=== PATIENT | female | born 1955 | race Caucasian/White ===

== ENCOUNTER → 2016-07-15 | Outpatient (REF) | payer MEDICAID | LOC: M LAB REF 16:55 | PROVIDERS: ATTEND Nurse Practitioner Adult Health | DX: N39.0 Urinary tract infection, site not specified (principal) ==

== ENCOUNTER → 2016-08-03 | Outpatient (REF) | payer MEDICAID | LOC: M LAB REF 12:23 | PROVIDERS: ATTEND Nurse Practitioner Adult Health | DX: R42 Dizziness and giddiness (principal); R41.3 Other amnesia ==

== ENCOUNTER → 2016-08-11 | Outpatient (REF) | payer MEDICAID | LOC: M LAB REF 16:58 | PROVIDERS: ATTEND Nurse Practitioner Adult Health | DX: N76.0 Acute vaginitis (principal) ==

== ENCOUNTER → 2016-10-05 | Outpatient (REF) | payer MEDICAID ==
[2016-10-05 16:10] LABS: THYROXINE (T4) 8.5 UG/DL (4.5-12.0)
== END ==
LOC: M LAB REF 14:48
PROVIDERS: ATTEND Nurse Practitioner Adult Health
DX: E03.9 Hypothyroidism, unspecified (principal)

== ENCOUNTER → 2016-12-21 | Outpatient (REF) | payer OTHER ==
[2016-12-21 19:29] LABS: BASO % 0.6 % (0.0-1.0); EOS # 0.2 K/mm3 (0.0-0.50); EOS % 2.3 % (0.0-3.0); LARGE UNSTAINED CELL # 0.1 K/mm3 (0.0-0.4); LARGE UNSTAINED CELL % 1.8 % (0.0-4.0); LYMPH # 2.4 K/mm3 (1.5-4.5); LYMPH % 33.2 % (24.0-44.0); MEAN CORPUSCULAR HGB CONC 31.9 g/dl (32.0-36.5); MEAN CORPUSCULAR VOLUME 100.4 fl (80.0-96.0); MONO # 0.4 K/mm3 (0.0-0.8); MONO % 5.6 % (0.0-5.0); NEUTROPHILS # 3.9 K/mm3 (1.8-7.7); NEUTROPHILS % 56.5 % (36.0-66.0); PLATELET COUNT, AUTOMATED 279 k/mm3 (150-450); RED CELL DISTRIBUTION WIDTH 12.6 % (11.5-14.5); WHITE BLOOD COUNT 6.9 K/mm3 (4.0-10.0)
[2016-12-21 19:32] LABS: ALBUMIN 3.5 GM/DL (3.2-5.2); ALBUMIN/GLOBULIN RATIO 1.06 (1.00-1.93); ALKALINE PHOSPHATASE 96 U/L (45-117); ALT/SGPT 32 U/L (12-78); ANION GAP 6 MEQ/L (8-16); AST/SGOT 23 U/L (15-37); BILIRUBIN,TOTAL 0.3 MG/DL (0.2-1.0); BLOOD UREA NITROGEN 10 MG/DL (7-18); CALCIUM LEVEL 8.5 MG/DL (8.8-10.2); CARBON DIOXIDE LEVEL 28 MEQ/L (21-32); CHLORIDE LEVEL 109 MEQ/L (98-107); CREATININE FOR GFR 0.96 MG/DL (0.55-1.02); GLOMERULAR FILTRATION RATE > 60.0 (>45); GLUCOSE, FASTING 120 MG/DL (80-110); MAGNESIUM LEVEL 2.1 MG/DL (1.8-2.4); POTASSIUM SERUM 4.4 MEQ/L (3.5-5.1); SODIUM LEVEL 143 MEQ/L (136-145); TOTAL PROTEIN 6.8 GM/DL (6.4-8.2)
[2016-12-21 20:52] LABS: ERYTHROCYTE SEDIMENTATION RATE 12 mm/hr (0-30)
== END ==
LOC: M LAB REF 17:37
PROVIDERS: ATTEND Nurse Practitioner Adult Health
DX: M79.7 Fibromyalgia (principal); E03.9 Hypothyroidism, unspecified; F32.1 Major depressive disorder, single episode, moderate

== ENCOUNTER → 2016-12-24 | Outpatient (REF) | payer OTHER ==
[2016-12-24 18:55] LABS: ANION GAP 4 MEQ/L (8-16); BLOOD UREA NITROGEN 14 MG/DL (7-18); CARBON DIOXIDE LEVEL 27 MEQ/L (21-32); CHLORIDE LEVEL 109 MEQ/L (98-107); CREATININE FOR GFR 0.95 MG/DL (0.55-1.02); GLOMERULAR FILTRATION RATE > 60.0 (>45); GLUCOSE, FASTING 191 MG/DL (80-110); POTASSIUM SERUM 4.2 MEQ/L (3.5-5.1); SODIUM LEVEL 140 MEQ/L (136-145)
== END ==
LOC: M LAB REF 17:00
PROVIDERS: ATTEND Nurse Practitioner Adult Health
DX: I10 Essential (primary) hypertension (principal)

== ENCOUNTER → 2017-04-27 | Outpatient (REF) | payer OTHER ==
[2017-04-27 18:08] LABS: CALCIUM OXALATE CRYSTALS LARGE
== END ==
LOC: M LAB REF 16:41
PROVIDERS: ATTEND Nurse Practitioner Family
DX: N39.0 Urinary tract infection, site not specified (principal)

== ENCOUNTER → 2017-11-24 | Outpatient (CLI) | payer OTHER | LOC: M WHC 11:07 | DX: Z12.31 Encounter for screening mammogram for malignant neoplasm of breast (principal); Z78.0 Asymptomatic menopausal state; Z92.0 Personal history of contraception | CPT/HCPCS: 77067 ==

== ENCOUNTER 2018-02-18 17:22 | Inpatient (IN) | payer MEDICAID, OTHER ==
[2018-02-18 18:15] LABS: HEMATOCRIT 41.4 % (36.0-47.0); HEMOGLOBIN 13.4 g/dl (12.0-15.5); MEAN CORPUSCULAR HEMOGLOBIN 29.8 pg (27.0-33.0); MEAN CORPUSCULAR HGB CONC 32.4 g/dl (32.0-36.5); PLATELET COUNT, AUTOMATED 345 10^3/uL (150-450); RED CELL DISTRIBUTION WIDTH 12.5 % (11.5-14.5); WHITE BLOOD COUNT 11.4 10^3/uL (4.0-10.0)
[2018-02-18 18:35] LABS: AMPHETAMINES LEVEL URINE NEGATIVE (NEGATIVE); BARBITURATES URINE NEGATIVE (NEGATIVE); BENZODIAZEPINES URINE POSITIVE (NEGATIVE); CANNABINOIDS URINE NEGATIVE (NEGATIVE); COCAINE METABOLITE URINE NEGATIVE (NEGATIVE); METHADONE URINE NEGATIVE (NEGATIVE); OPIATES URINE NEGATIVE (NEGATIVE); PHENCYCLIDINE URINE NEGATIVE (NEGATIVE)
[2018-02-18 18:46] LABS: ALBUMIN 3.6 GM/DL (3.2-5.2); ALKALINE PHOSPHATASE 138 U/L (45-117); ALT/SGPT 29 U/L (12-78); ANION GAP 7 MEQ/L (8-16); AST/SGOT 20 U/L (7-37); BILIRUBIN,DIRECT < 0.1 MG/DL (0.0-0.2); BILIRUBIN,TOTAL 0.3 MG/DL (0.2-1.0); BLOOD UREA NITROGEN 15 MG/DL (7-18); CALCIUM LEVEL 8.8 MG/DL (8.8-10.2); CARBON DIOXIDE LEVEL 26 MEQ/L (21-32); CHLORIDE LEVEL 107 MEQ/L (98-107); CREATININE FOR GFR 0.88 MG/DL (0.55-1.30); GLOMERULAR FILTRATION RATE > 60.0 (>45); GLUCOSE, FASTING 94 MG/DL (70-100); SALICYLATE LEVEL < 1.7 MG/DL (5.0-30.0); SODIUM LEVEL 140 MEQ/L (136-145); TOTAL PROTEIN 8.1 GM/DL (6.4-8.2)
[2018-02-18 18:47] LABS: ACETAMINOPHEN LEVEL < 2.0 UG/ML (10.0-30.0); ETHYL ALCOHOL (ETHANOL) < 0.003 % (0.000-0.010)
[2018-02-18] MEDS ORDERED: MAALOX 30 ML SUSP *UDC PO (20:15)
[2018-02-18] MEDS ORDERED: zolPIDEM TARTRATE 5 MG TAB PO (20:45)
[2018-02-18] MEDS: MAGNESIUM OXIDE 400 MG TAB (MAG-OX) PO (21:00)
[2018-02-18] MEDS: TOPIRAMATE (TopAMAX) 100 MG TAB PO (21:00)
[2018-02-18] MEDS: LEVOTHYROXINE 25MCG TABLET (0.025MG) PO (22:23)
[2018-02-18] MEDS: ACETAMINOPHEN TAB 650MG DOSE (2X325MG) PO (22:23)
[2018-02-18] MEDS: LORazepam 1 MG TAB PO (22:24)
[2018-02-19] MEDS: DULoxetine 30 MG CAP (CYMBALTA) PO (09:04)
[2018-02-19] MEDS: ENALAPRIL MALEATE 5 MG TAB PO (09:04)
[2018-02-19] MEDS: TOPIRAMATE (TopAMAX) 100 MG TAB PO ×2 (09:04→20:08)
[2018-02-19] MEDS: FUROSEMIDE 20 MG TAB PO (09:04)
[2018-02-19] MEDS: LORazepam 1 MG TAB PO ×2 (11:13→20:08)
[2018-02-19] MEDS: ACETAMINOPHEN TAB 650MG DOSE (2X325MG) PO (20:07)
[2018-02-19] MEDS: MAGNESIUM OXIDE 400 MG TAB (MAG-OX) PO (20:08)
[2018-02-19] MEDS: LEVOTHYROXINE 25MCG TABLET (0.025MG) PO (20:08)
[2018-02-20] MEDS: FUROSEMIDE 20 MG TAB PO (08:49)
[2018-02-20] MEDS: TOPIRAMATE (TopAMAX) 100 MG TAB PO ×2 (08:50→20:30)
[2018-02-20] MEDS: DULoxetine 30 MG CAP (CYMBALTA) PO (08:50)
[2018-02-20] MEDS: ENALAPRIL MALEATE 5 MG TAB PO (08:50)
[2018-02-20] MEDS: ACETAMINOPHEN TAB 650MG DOSE (2X325MG) PO (08:51)
[2018-02-20] MEDS: LORazepam 1 MG TAB PO ×2 (13:12→20:29)
[2018-02-20 17:23] LABS: BEDSIDE GLUCOSE 132 MG/DL (80-115)
[2018-02-20] MEDS: PANTOPRAZOLE 40MG TAB (PROTONIX) PO (18:00)
[2018-02-20] MEDS: metFORMIN XR 500MG TAB *GLUCOPHAGE XR PO (18:05)
[2018-02-20] MEDS: MAGNESIUM OXIDE 400 MG TAB (MAG-OX) PO (20:30)
[2018-02-21] MEDS: LEVOTHYROXINE 25MCG TABLET (0.025MG) PO (06:14)
[2018-02-21 06:23] LABS: BEDSIDE GLUCOSE 146 MG/DL (80-115)
[2018-02-21 06:47] LABS: BASO # 0.1 10^3/uL (0.0-0.2); BASO % 0.6 % (0.0-1.0); EOS # 0.2 10^3/uL (0.0-0.50); EOS % 2.1 % (0.0-3.0); HEMOGLOBIN 12.9 g/dl (12.0-15.5); IMMATURE GRANULOCYTE % 0.3 % (0-3.0); LYMPH # 3.7 10^3/uL (1.5-4.5); LYMPH % 35.8 % (24.0-44.0); MEAN CORPUSCULAR HEMOGLOBIN 30.5 pg (27.0-33.0); MEAN CORPUSCULAR HGB CONC 32.3 g/dl (32.0-36.5); MEAN CORPUSCULAR VOLUME 94.6 fl (80.0-96.0); MONO # 0.7 10^3/uL (0.0-0.8); MONO % 6.2 % (0.0-5.0); NEUTROPHILS # 5.8 10^3/uL (1.8-7.7); PLATELET COUNT, AUTOMATED 306 10^3/uL (150-450); RED BLOOD COUNT 4.23 10^6/uL (4.00-5.40); RED CELL DISTRIBUTION WIDTH 12.8 % (11.5-14.5); WHITE BLOOD COUNT 10.5 10^3/uL (4.0-10.0)
[2018-02-21] MEDS: TOPIRAMATE (TopAMAX) 100 MG TAB PO ×2 (09:40→21:24)
[2018-02-21] MEDS: DULoxetine 30 MG CAP (CYMBALTA) PO (09:40)
[2018-02-21] MEDS: PANTOPRAZOLE 40MG TAB (PROTONIX) PO (09:41)
[2018-02-21] MEDS: FUROSEMIDE 20 MG TAB PO (09:41)
[2018-02-21] MEDS: ENALAPRIL MALEATE 5 MG TAB PO (09:41)
[2018-02-21] MEDS: LORazepam 1 MG TAB PO ×3 (09:42→17:52)
[2018-02-21 11:57] LABS: ESTIMATED AVERAGE GLUCOSE 160 MG/DL (60-110); HEMOGLOBIN A1c 7.2 %
[2018-02-21] MEDS: ACETAMINOPHEN TAB 650MG DOSE (2X325MG) PO (13:13)
[2018-02-21] MEDS: MOM 30ML SUSPENSION UDC PO (17:52)
[2018-02-21] MEDS: metFORMIN XR 500MG TAB *GLUCOPHAGE XR PO (17:52)
[2018-02-21] MEDS: MAGNESIUM OXIDE 400 MG TAB (MAG-OX) PO (21:24)
[2018-02-21] MEDS: traZODone 50 MG TAB PO (21:24)
[2018-02-22] MEDS: LEVOTHYROXINE 25MCG TABLET (0.025MG) PO (06:11)
[2018-02-22] MEDS: FUROSEMIDE 20 MG TAB PO (08:54)
[2018-02-22] MEDS: TOPIRAMATE (TopAMAX) 100 MG TAB PO (08:54)
[2018-02-22] MEDS: PANTOPRAZOLE 40MG TAB (PROTONIX) PO (08:55)
[2018-02-22] MEDS: DULoxetine 30 MG CAP (CYMBALTA) PO (08:55)
[2018-02-22] MEDS: ENALAPRIL MALEATE 5 MG TAB PO (08:55)
[2018-02-22] MEDS: LORazepam 1 MG TAB PO (09:42)
== END 2018-02-22 13:45 | disposition home or self-care (01) | DRG 885 ==
LOC: M ED 17:22 → M ED INP 20:05 → M PSY 21:22
DX: F33.0 Major depressive disorder, recurrent, mild (principal); M79.7 Fibromyalgia; K58.9 Irritable bowel syndrome, unspecified; I10 Essential (primary) hypertension; E03.9 Hypothyroidism, unspecified; E11.9 Type 2 diabetes mellitus without complications; Z79.84 Long term (current) use of oral hypoglycemic drugs; Z88.0 Allergy status to penicillin; Z91.048 Other nonmedicinal substance allergy status; Z79.899 Other long term (current) drug therapy

== ENCOUNTER → 2018-07-19 | Outpatient (REF) | payer MEDICARE, OTHER ==
[~2018-07-19] MED LIST: ALPR0.25 PO; D3 S20002 PO; DULO1CAP3 PO; ENAL5TAB PO; FURO20TA2 PO; HYDR50TA70 PO; LEVO25TA5 PO; METF500T4 PO; NEXI40CA PO; SM M250T PO; TOPI100T9 PO; TRAZO50TA PO; VIBE1TAB2 PO; ZOLP5TAB PO
== END ==
LOC: M LAB REF 11:51
PROVIDERS: ATTEND Nurse Practitioner Adult Health
DX: N39.0 Urinary tract infection, site not specified (principal)

== ENCOUNTER → 2018-11-29 | Outpatient (REF) | payer MEDICARE, OTHER ==
[2018-11-29 14:08] LABS: BASO # 0.1 10^3/uL (0.0-0.2); BASO % 0.8 % (0.0-1.0); EOS # 0.2 10^3/uL (0.0-0.50); EOS % 2.5 % (0.0-3.0); HEMATOCRIT 43.2 % (36.0-47.0); HEMOGLOBIN 13.8 g/dl (12.0-15.5); LYMPH # 2.6 10^3/uL (1.5-4.5); LYMPH % 32.2 % (24.0-44.0); MEAN CORPUSCULAR HEMOGLOBIN 31.4 pg (27.0-33.0); MEAN CORPUSCULAR HGB CONC 31.9 g/dl (32.0-36.5); MEAN CORPUSCULAR VOLUME 98.4 fl (80.0-96.0); MONO # 0.4 10^3/uL (0.0-0.8); MONO % 5.1 % (0.0-5.0); NEUTROPHILS # 4.7 10^3/uL (1.8-7.7); PLATELET COUNT, AUTOMATED 334 10^3/uL (150-450); RED BLOOD COUNT 4.39 10^6/uL (4.00-5.40)
[2018-11-29 14:29] LABS: ALBUMIN 3.9 GM/DL (3.2-5.2); ALT/SGPT 31 U/L (12-78); BILIRUBIN,TOTAL 0.2 MG/DL (0.2-1.0); BLOOD UREA NITROGEN 29 MG/DL (7-18); CALCIUM LEVEL 9.7 MG/DL (8.8-10.2); CARBON DIOXIDE LEVEL 26 MEQ/L (21-32); CHLORIDE LEVEL 104 MEQ/L (98-107); FOLATE > 24.0 NG/ML (>5.4); GLOMERULAR FILTRATION RATE 59.2 (>45); GLUCOSE, FASTING 157 MG/DL (70-100); POTASSIUM SERUM 4.1 MEQ/L (3.5-5.1); RHEUMATOID FACTOR QUANT < 10.0 IU/ML (<15.0); SODIUM LEVEL 139 MEQ/L (136-145); THYROID STIMULATING HORMONE 0.767 uIU/ML (0.358-3.740); TOTAL PROTEIN 7.5 GM/DL (6.4-8.2); VITAMIN B12 LEVEL 1034 PG/ML (247-911)
[2018-11-29 14:43] LABS: ERYTHROCYTE SEDIMENTATION RATE 16 mm/hr (0-30)
[2018-12-01 09:54] LABS: ALBUMIN 4.23 GM/DL (3.29-5.55); ALBUMIN % 56.4 % (55.8-66.1); ALPHA-1-GLOBULIN % 3.2 % (2.9-4.9); ALPHA-1-GLOBULINS 0.24 GM/DL (0.17-0.41); ALPHA-2-GLOBULINS 0.78 GM/DL (0.42-0.99); ALPHA-2-GLOBULINS % 10.4 % (7.1-11.8); BETA-1-GLOBULINS 0.54 GM/DL (0.28-0.60); BETA-1-GLOBULINS % 7.2 % (4.7-7.2); BETA-2-GLOBULINS 0.47 GM/DL (0.19-0.55); BETA-2-GLOBULINS % 6.3 % (3.2-6.5); GAMMA GLOBULIN % 16.5 % (11.1-18.8); GAMMA GLOBULINS 1.24 GM/DL (0.65-1.58)
[2018-12-03 14:12] LABS: ANCA-ATYPICAL <1:20 titer (Neg:<1:20); ANTI DS-DNA AB <1:10 titer (.); ANTINUCLEAR ANTIBODIES DIRECT Negative (Negative); CYTOPLASMIC NEUTROP AB ANCA-C <1:20 titer (Neg:<1:20); PERINUCLEAR AB ANCA-P <1:20 titer (Neg:<1:20); SJOGREN'S ANTI SS-A <0.2 AI (0.0-0.9); SJOGREN'S ANTI SS-B <0.2 AI (0.0-0.9); VITAMIN B1 LEVEL WHOLE BLOOD 213.5 nmol/L (66.5-200.0); VITAMIN B6,PYRIDOXAL PHOSPHATE 72.4 ug/L (2.0-32.8); VITAMIN E(GAMMA TOCOPHEROL) 2.3 mg/L (0.5-4.9)
[2018-12-06 10:31] LABS: DRVV SCREEN 39.3 SEC
== END ==
LOC: M LABNEURO 09:02
PROVIDERS: ATTEND Psychiatry & Neurology Neurology
DX: G62.9 Polyneuropathy, unspecified (principal); Z79.84 Long term (current) use of oral hypoglycemic drugs; Z79.899 Other long term (current) drug therapy

== ENCOUNTER → 2019-01-17 | Outpatient (REF) | payer MEDICARE, MEDICAID ==
[~2019-01-17] MED LIST changes: -DULO1CAP3 PO; +DULO1CAP6 PO; +TRAZ1TAB10 PO; -TRAZO50TA PO
[2019-01-17 14:10] LABS: MALB URINE SIEMENS 15.7 MG/L; MAU/CREAT RATIO 13.3 MCG/MG (0.0-30.0)
== END ==
LOC: M LAB REF 13:17
PROVIDERS: ATTEND Nurse Practitioner Adult Health
DX: E11.9 Type 2 diabetes mellitus without complications (principal)

== ENCOUNTER → 2019-03-06 | Outpatient (CLI) | payer MEDICARE, MEDICAID ==
--- NOTE | 2019-03-06 12:13 | REPMRS ---
Patient History The patient states she has not had a clinical breast exam in over a year. Patient is postmenopausal and had first child at age 30. Family history of breast cancer at age 65 in sister, breast cancer at age 68 in sister, pancreatic cancer at age 73 in mother, prostate cancer at age 50 or over in brother. Reductions of both breasts, 2009. Benign core biopsy of the right breast. Took hormonal contraceptives for 20 years. Took unspecified hormones for 2 months. 3D TOMOSYNTHESIS WAS PERFORMED. The [facility] lifetime risk for breast cancer is 16.0%. Digital Woman Screen Mammo: March 06, 2019 - Exam #: [id number] Bilateral CC and MLO view(s) were taken. Technologist: Candi Quarles, Technologist Prior study comparison: November 24, 2017, digital woman screen mammo performed at [facility]. April 05, 2014, bilateral bilat screen digital mammo, performed at [facility] ([facility]). FINDINGS: The breast tissue is heterogeneously dense. This may lower the sensitivity of mammography. There has been no change in the appearance of the mammogram from the prior studies. There is a moderate amount of residual fibroglandular tissue which is fairly symmetric. There is no interval development of dominant mass, areas of architectural distortion, or clustered microcalcification typical of malignancy. Assessment: BI-RADS/ACR category 1 mammogram. Negative Mammogram. Recommendation Routine screening mammogram in 1 year (for women over age 40). This mammogram was interpreted with the aid of an FDA-approved computer-aided dectection system. Electronically Signed By: Genaro Méndez MD 03/06/19 0488
== END ==
LOC: M WHC 10:48
PROVIDERS: ATTEND Nurse Practitioner Adult Health
DX: Z12.31 Encounter for screening mammogram for malignant neoplasm of breast (principal); Z78.0 Asymptomatic menopausal state; Z80.3 Family history of malignant neoplasm of breast; Z80.0 Family history of malignant neoplasm of digestive organs; Z92.0 Personal history of contraception

== ENCOUNTER → 2019-11-21 | Outpatient (REF) | payer MEDICARE ==
[~2019-11-21] MED LIST changes: +METF-838 PO; -METF500T4 PO
[2019-11-21 14:30] LABS: APPEARANCE, URINE HAZY (CLEAR); BACTERIA, URINE AUTO 1+ (NEGATIVE); BILIRUBIN, URINE AUTO NEGATIVE (NEGATIVE); BLOOD, URINE BLOOD NEGATIVE (NEGATIVE); COLOR, URINE YELLOW (YELLOW); GLUCOSE, URINE (UA) AUTO 3+ mg/dL (NEGATIVE); KETONE, URINE AUTO NEGATIVE (NEGATIVE); LEUKOCYTE ESTERASE, URINE AUTO 2+ (NEGATIVE); NITRITE, URINE AUTO NEGATIVE (NEGATIVE); PROTEIN, URINE AUTO NEGATIVE (NEGATIVE); RBC, URINE AUTO 3 /HPF (0-3); SPECIFIC GRAVITY URINE AUTO 1.031 (1.002-1.035); SQUAMOUS EPITHELIAL CELL UR AU 6 /HPF (0-6); TRANSITIONAL EPITHELIAL AUTO 1 /HPF; UROBILINOGEN, URINE AUTO 0.2 mg/dL (0.0-2.0); WBC, URINE AUTO 18 /HPF (0-3)
== END ==
LOC: M LAB REF 13:40
PROVIDERS: ATTEND Physician Assistant Medical
DX: N39.0 Urinary tract infection, site not specified (principal)

== ENCOUNTER 2019-12-17 18:33 | Emergency (ER) | payer MEDICARE ==
[~2019-12-17] VITALS: Ht 160 cm; Wt 75.9 kg
[2019-12-17] MEDS ORDERED: HM C500T3 PO (18:57)
[2019-12-17] MEDS ORDERED: PROBCAP14 PO (18:57)
[2019-12-17] MEDS ORDERED: B-122500 PO (18:57)
[2019-12-17] MEDS ORDERED: ZINC1TAB2 PO (18:57)
[2019-12-17] MEDS ORDERED: CENT1TAB PO (18:57)
[2019-12-17] MEDS ORDERED: ESOM0.1C PO (18:57)
[2019-12-17] MEDS ORDERED: FOLI1TAB11 PO (18:57)
[2019-12-17] MEDS ORDERED: VITA500C24 PO (18:57)
[2019-12-17] MEDS ORDERED: NS 1,000 ML IV ONE (19:45)
[2019-12-17] MEDS ORDERED: ACETAMINOPHEN 325 MG TAB PO ONE (19:45)
[2019-12-17] MEDS ORDERED: METOCLOPRAMIDE INJ 10MG/2ML VIAL (J2765 PER 1) IV ONE (19:45)
--- NOTE | 2019-12-17 19:54 | REPVR ---
PROCEDURE INFORMATION: Exam: CT Head Without Contrast Exam date and time: 12/17/2019 7:40 PM Age: 64 years old Clinical indication: Pain; Headache; Additional info: Dizzy, occipital MADDOX TECHNIQUE: Imaging protocol: Computed tomography of the head without contrast. Radiation optimization: All CT scans at this facility use at least one of these dose optimization techniques: automated exposure control; mA and/or kV adjustment per patient size (includes targeted exams where dose is matched to clinical indication); or iterative reconstruction. COMPARISON: No relevant prior studies available. FINDINGS: Brain: There is no evidence for an acute large vessel territorial infarct, intracranial hemorrhage, mass, mass effect, midline shift, or herniation. There is a focus of low attenuation in the inferior aspect both basal ganglia, which may represent dilated perivascular spaces or chronic lacunar infarcts. Ventricles: The ventricles are mildly dilated in proportion to the sulci, which is compatible with mild generalized cerebral volume loss. Bones/joints: The skull is intact. No suspicious osteolytic or osteoblastic lesion. Sinuses: The imaged portions of the sinuses are well-aerated. No air-fluid levels are noted in the sinuses. Mastoid air cells: Clear. Auditory system: The middle ear spaces are clear. Vasculature: There are atherosclerotic calcifications of the intracranial portion of the internal carotid arteries. Soft tissues: Unremarkable. IMPRESSION: No acute intracranial abnormality. Electronically signed by: Yung Meneses On 12/17/2019 19:54:32 PM
[2019-12-17 20:33] LABS: BASO # 0.1 10^3/uL (0.0-0.2); BASO % 0.7 % (0.0-1.0); EOS # 0.2 10^3/uL (0.0-0.5); EOS % 1.4 % (0.0-3.0); HEMATOCRIT 44.6 % (36.0-47.0); HEMOGLOBIN 14.2 g/dl (12.0-15.5); LYMPH # 3.2 10^3/uL (1.5-5.0); LYMPH % 23.6 % (24.0-44.0); MEAN CORPUSCULAR HEMOGLOBIN 29.4 pg (27.0-33.0); MEAN CORPUSCULAR HGB CONC 31.8 g/dl (32.0-36.5); MEAN CORPUSCULAR VOLUME 92.3 fl (80.0-96.0); MONO # 0.8 10^3/uL (0.0-0.8); MONO % 5.8 % (0.0-5.0); NEUTROPHILS # 9.4 10^3/uL (1.5-8.5); NEUTROPHILS % 68.1 % (36.0-66.0); PLATELET COUNT, AUTOMATED 329 10^3/uL (150-450); RED BLOOD COUNT 4.83 10^6/uL (4.00-5.40); WHITE BLOOD COUNT 13.7 10^3/uL (4.0-10.0)
[2019-12-17 20:53] LABS: ERYTHROCYTE SEDIMENTATION RATE 7 mm/hr (0-30)
[2019-12-17 21:35] LABS: BLOOD UREA NITROGEN 18 MG/DL (7-18); C REACTIVE PROTEIN QUANTITATIV 0.85 MG/DL (0.00-0.30); CALCIUM LEVEL 8.4 MG/DL (8.8-10.2); CARBON DIOXIDE LEVEL 23 MEQ/L (21-32); CHLORIDE LEVEL 111 MEQ/L (98-107); CK-MB VALUE MASS 1.7 NG/ML (<3.6); CPK CREATINE PHOSPHOKINASE 91 U/L (26-192); CREATININE FOR GFR 0.96 MG/DL (0.55-1.30); GLOMERULAR FILTRATION RATE > 60.0 (>45); GLUCOSE, FASTING 109 MG/DL (70-100); MB/CK RELATIVE INDEX 1.87 (< OR =4); SODIUM LEVEL 142 MEQ/L (136-145); TROPONIN I < 0.02 NG/ML (< 0.10)
[2019-12-17] MEDS ORDERED: methocarbamoL 750 MG TAB PO ONE (21:45)
[2019-12-17] MEDS ORDERED: methylPREDNISolone INJ 125 MG/2 ML VIAL (J2930) IV ONE (21:45)
[2019-12-17] MEDS ORDERED: PRED20TA PO (22:00)
[2019-12-17] MEDS ORDERED: ROBA750T4 PO (22:00)
[2019-12-17 22:05] VITALS: BP 136/81
--- NOTE | 2019-12-18 12:40 | REP ---
REASON FOR EXAM: Backache and dizziness. The only prior for comparison is a frontal view obtained as part of an abdominal series on 11/23/2010. Cardiomediastinal silhouette is unchanged and again seen to be within normal limits. The frontal view shows lungs to be clear, however, the lateral view shows a tiny substernal opacity in the anterior segment of one of the upper lung da silva. The osseous structures are stable and intact. IMPRESSION: Subtle opacity seen in the retrosternal clear space only on the lateral view, as described above. This warrants contrast-enhanced chest CT. Electronically Signed by Luisito Valdovinos DO 12/18/2019 03:17 P
--- NOTE | 2019-12-18 18:22 | ECGEPIP ---
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
--- NOTE | 2019-12-19 14:45 | ED PDOC ---
Post-Departure Follow-Up miguel ángel rachel faxed formal report of cxr for fu Toña Lester MD Dec 19, 2019 14:44
== END 2019-12-17 22:15 | disposition home or self-care (01) ==
LOC: M ED 18:33
DX: R51 Headache (principal); M54.9 Dorsalgia, unspecified; D72.829 Elevated white blood cell count, unspecified; E11.9 Type 2 diabetes mellitus without complications; G43.809 Other migraine, not intractable, without status migrainosus; M79.7 Fibromyalgia; K58.9 Irritable bowel syndrome, unspecified; Z88.0 Allergy status to penicillin; Z91.048 Other nonmedicinal substance allergy status; Z79.899 Other long term (current) drug therapy; Z79.84 Long term (current) use of oral hypoglycemic drugs
CPT/HCPCS: 70450; 71046; 80048; 82550; 82553; 84484; 85025; 85652; 86140; 93005; 93041; 94760; 96374; 96375; 99284; J2765; J2930

== ENCOUNTER → 2019-12-25 | Outpatient (REF) | payer MEDICARE ==
[~2019-12-25] MED LIST changes: +B-122500 PO; +CENT1TAB PO; +ENAL5TA PO; -ENAL5TAB PO; +ESOM0.1C PO; +FOLI1TAB11 PO; +HM C500T3 PO; +PRED20TA PO; +PROBCAP14 PO; +ROBA750T4 PO; +VITA500C24 PO; +ZINC1TAB2 PO
== END ==
LOC: M LAB REF 17:47
PROVIDERS: ATTEND Physician Assistant
DX: L57.0 Actinic keratosis (principal); L57.8 Other skin changes due to chronic exposure to nonionizing radiation
CPT/HCPCS: 11102; 88305; G0463

== ENCOUNTER → 2020-01-25 | Outpatient (REF) | payer MEDICARE | LOC: M LAB REF 09:44 | PROVIDERS: ATTEND Dermatology | DX: L57.0 Actinic keratosis (principal) ==

== ENCOUNTER → 2020-10-11 | Outpatient (CLI) | payer MEDICARE ==
--- NOTE | 2020-10-11 12:41 | REP ---
INDICATION: ROSAURA SCR MAMMO. Family history of breast cancer at age 65 in sister and at age 68 in sister. COMPARISON: 03/06/2019 as well as other prior exams. TECHNIQUE: MLO and CC views bilateral breasts performed with tomosynthesis. FINDINGS: Moderate heterogeneous fibroglandular tissue is present bilaterally. No new mass is seen. Biopsy clips are again seen adjacent to 1 another anteriorly in the upper-outer quadrant of the right breast. I suspect new tiny calcifications in the upper outer quadrant of the left breast, mid 3rd. Otherwise coarse benign type calcifications are seen bilaterally. The Volpara volumetric breast density pattern is B. IMPRESSION: BIRADS/ACR category 0, incomplete. I suspect new tiny pleomorphic microcalcifications in the upper-outer quadrant of the left breast. Recommend magnification views to further evaluate. This patient's [facility]uzick lifetime breast cancer risk assessment score is 14.4%. This mammogram was interpreted with the aid of an FDA-approved computer-aided detection system. The patient states she had a clinical breast exam in April 2020. The patient letter being requested is M0. RECOMMENDATION: Recommend magnification views left breast. <Electronically signed by Genaro Méndez > 10/11/20 [id number]
== END ==
LOC: M WHC 11:31
PROVIDERS: ATTEND Nurse Practitioner Adult Health
DX: R92.8 Other abnormal and inconclusive findings on diagnostic imaging of breast (principal)

== ENCOUNTER → 2020-10-18 | Outpatient (CLI) | payer MEDICARE, MEDICAID ==
--- NOTE | 2020-10-18 11:28 | REP ---
INDICATION: ADDITIONAL VIEW LT BREAST. COMPARISON: 10/11/2020 as well as other prior exams. TECHNIQUE: Multiple magnification views left breast performed. FINDINGS: Today's additional views confirm the presence of tiny clustered pleomorphic microcalcifications in the upper-outer quadrant of the left breast. Recommend stereotactic biopsy. IMPRESSION: BIRADS/ACR category 4, suspicious. Clustered tiny pleomorphic microcalcifications upper-outer quadrant left breast. Recommend stereotactic biopsy. This mammogram was interpreted with the aid of an FDA-approved computer-aided detection system. The patient letter being requested is M4. RECOMMENDATION: Recommend stereotactic biopsy left breast microcalcifications. <Electronically signed by Genaro Méndez > 10/18/20 1124
== END ==
LOC: M WHC 10:17
PROVIDERS: ATTEND Nurse Practitioner Adult Health
DX: Z12.31 Encounter for screening mammogram for malignant neoplasm of breast (principal); R92.0 Mammographic microcalcification found on diagnostic imaging of breast

== ENCOUNTER → 2020-10-29 | Outpatient (CLI) | payer MEDICARE, MEDICAID ==
[~2020-10-29] MED LIST changes: +SEMA1PEN2 SQ
[2020-10-29 11:48] VITALS: BP 110/76
--- NOTE | 2020-10-29 12:17 | REP ---
INDICATION: LEFT BREAST MICROCALC/STERO BX/CK CLIP PLACEMENT. Marker clip placement views. COMPARISON: Comparison mammography is from October 18, 2020. TECHNIQUE: Craniocaudal and mediolateral views of the left breast are obtained. FINDINGS: Craniocaudal and mediolateral views of the left breast demonstrate the needle biopsy marker clip in good position at the site where prior mammography showed the microcalcifications. Microcalcifications are no longer visible. IMPRESSION: Marker clip in good position. This mammogram was interpreted with the aid of an FDA-approved computer-aided detection system. <Electronically signed by Michel Hussein > 10/29/20 [id number]
--- NOTE | 2020-10-29 12:19 | REP ---
INDICATION: LEFT BREAST MICROCALC/STERO BX/CK CLIP PLACEMENT. COMPARISON: Comparison mammography October 18, 2020 showed microcalcifications.. TECHNIQUE: Single-view specimen radiograph stereotactic needle biopsy specimen left breast. FINDINGS: Specimen radiography demonstrates the micro calcific target contained in 1 of the removed specimens. IMPRESSION: Specimen radiography shows microcalcifications from the target. <Electronically signed by Michel Hussein > 10/29/20 [id number]
--- NOTE | 2020-10-30 11:03 | REP ---
INDICATION: LEFT BREAST MICROCALC/STERO BX/CK CLIP PLACEMENT. COMPARISON: None. TECHNIQUE: This procedure is performed by Lexi Steele [facility], under the direct supervision of Dr. Hussein. The risks and benefits of the procedure were explained to the patient and informed consent was obtained both verbally and written. Directly prior to the start of the procedure, a formal timeout was done in the procedure room. The cranial caudal approach was utilized on the prone table. The left breast microcalcification's were localized using mammographic guidance. The skin was prepped and draped in a sterile fashion. Four ml of buffered lidocaine 1% lidocaine 10 mg/ml was used as a local anesthetic. FINDINGS: A 10 gauge mammotome vacuum assisted biopsy device was inserted and advanced into the left breast microcalcification's and 6 core biopsy samples were obtained. A marker clip was placed at the biopsy site. Imaging done of the specimens directly after the biopsy demonstrated microcalcification's within the specimen. The patient tolerated the procedure well and there were no immediate complications. After the appropriate amount of monitored convalescence the patient was discharged from the department. IMPRESSION: Stereotactic guided left breast biopsy with micro clip placement. <Electronically signed by Lexi Steele > 10/30/20 2327 <Electronically signed by Michel Hussein > 10/30/20 [id number]
== END ==
LOC: M WHCPRO 06:44
PROVIDERS: ATTEND Nurse Practitioner Adult Health
DX: R92.8 Other abnormal and inconclusive findings on diagnostic imaging of breast (principal)

== ENCOUNTER → 2020-12-23 | Outpatient (CLI) | payer MEDICARE, MEDICAID ==
[~2020-12-23] MED LIST changes: -HM C500T3 PO; +HM C500T4 PO
--- NOTE | 2020-12-26 00:28 | ECWPNPC ---
PATIENT NAME: ELISE GOODWIN : 1955 GENDER: FEMALE VISIT DATE: 12/23/2020 DISCHARGE DATE: 12/23/20 1451 VISIT LOCKED DATE TIME: PHYSICIAN: MAHSA SEGUNDO RESOURCE: MAHSA SEGUNDO REASON FOR APPOINTMENT 1. FACIAL PAIN HISTORY OF PRESENT ILLNESS GENERAL: 65-YEAR-OLD FEMALE BEING REFERRED BY PRIMARY CARE TO EVALUATE PERSISTENT LEFT FACIAL PAIN. THIS BEGAN A FEW YEARS AGO AND IS VERY INTERMITTENT BUT SEVERE. PATIENT FEELS THAT SHE HAD A DEVICE THAT SHE WAS USING ON HER FACE THAT MAY HAVE IRRITATED THE NERVES. 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 CONTINUES WITH INTERMITTENT EPISODES OF SEVERE LEFT FACIAL PAIN. STATES WHEN IT HAPPENS SHE DOES NOT KNOW WHAT SHE IS GOING TO DO BECAUSE IT SO SEVERE. - - -. FALL RISK SCREENING: SCREENING : NO FALLS REPORTED IN THE LAST YEAR . PAIN SCREENING: PATIENT HAS A COMPLAINT OF ACUTE OR CHRONIC PAIN :YES LOCATION OF PAIN:FACE LEFT SIDE OF FACE INTENSITY OF PAIN (SCALE OF 1 TO 10):3 WHAT DOES YOUR PAIN FEEL LIKE:CONTINOUS, SHARP, THROBBING, OTHER HOT DURATION:CONTINOUS, CONSTANT, STEADY, AWAKENS FROM SLEEP PAIN IS INCREASED BY:OTHERS SUGAR PAIN IS DECREASED BY:OTHERS HEATING PAD NURSING NOTE: - - -. PAIN CENTER INTAKE QUESTIONS: DO YOU HAVE A HISTORY OF MRSA? :NO DO YOU TAKE A BLOOD THINNERS? :NO DO YOU HAVE ANY BLEEDING DISORDERS? :NO ANY NEW NUMBNESS OR WEAKNESS IN YOUR LEGS OR ARMS? :NO ANY PACEMAKER,DEFIBRILLATOR, OR DORSAL COLUMN STIMULATOR? :NO DO YOU HAVE ANY RASHES OR OPEN SORES? :NO ARE YOU ALLERGIC TO IV DYE? :NO ARE YOU DIABETIC? :YES TYPE 2 ANY NEW PROBLEMS WITH YOUR MEDICATIONS? :NO HAVE YOU RECEIVED A VACCINE IN THE PAST 30 DAYS? :NO MODERNA 1ST: 08/19/2020 2ND : 09/16/2020 DO YOU PLAN TO RECEIVE A VACCINE IN THE NEXT 21 DAYS? :NO DO YOU NEED ANY PRESCRIPTION? :NO DO YOU TAKE ANY IMMUNOSUPPRESSIVE MEDICATIONS? :NO IS THERE A CHANCE YOU COULD BE ? :NO ARE YOU BREAST FEEDING? :NO CURRENT MEDICATIONS TAKING GABAPENTIN 100 MG CAPSULE 1 CAPSULE ORALLY TWICE A DAY TAKING PHENTERMINE HCL 30 MG TABLET DISINTEGRATING DIRECTED ORALLY EVERY DAY TAKING SHINGRIX 50 MCG/0.5ML SUSPENSION RECONSTITUTED INJECT DIRECTED 2ND DOSE INTRAMUSCULAR , NOTES: LAST YEAR SHE GOT IT TAKING VIBERZI 100 MG TABLET (SCHEDULE IV DRUG) TAKE ONE TABLET BY MOUTH TWICE A DAY MAXIMUM DAILY DOSE TWO TABLETS ORAL TAKING ALPRAZOLAM 0.25 MG TABLET (SCHEDULE IV DRUG) TAKE ONE TABLET BY MOUTH THREE TIMES A DAY NEEDED MAXIMUM DAILY DOSE 3 TABLETS ORAL TAKING OZEMPIC (0.25 OR 0.5 MG/DOSE) 2 MG/1.5ML SOLUTION PEN-INJECTOR INJECT 0.5MG SUBCUTANEOUSLY WEEKLY SUBCUTANEOUS TAKING CLOBETASOL PROPIONATE 0.05 % SHAMPOO 1 APPLICATION EXTERNALLY THREE TIMES WEEKLY TAKING HYDROQUINONE 4 % CREAM APPLY TO FULL FACE TWICE A DAY FOR 3 MONTHS TAKING ATORVASTATIN CALCIUM 20 MG TABLET 1 TABLET ORALLY ONCE A DAY TAKING PHENTERMINE HCL 30 MG CAPSULE 1 CAPSULE ORALLY ONCE A DAY TAKING TOPIRAMATE 100 MG TABLET 1 TABLET ORALLY ONCE A DAY TAKING VALTREX 1 GM TABLET 1 TABLET ORALLY ONCE A DAY TAKING LEVOTHYROXINE SODIUM 50 MCG TABLET 1 TABLET IN THE MORNING ON AN EMPTY STOMACH ORALLY ONCE A DAY TAKING DULOXETINE HCL 60 MG CAPSULE DELAYED RELEASE PARTICLES 1 CAPSULE ORALLY ONCE A DAY TAKING ESOMEPRAZOLE MAGNESIUM 20 MG CAPSULE DELAYED RELEASE 1 CAPSULE ORALLY ONCE A DAY TAKING VITAMIN D3 50 MCG (2000 UT) CAPSULE 1 CAPSULE ORALLY ONCE A DAY TAKING MAGNESIUM 200 MG TABLET 2 TABLETS WITH A MEAL ORALLY ONCE A DAY TAKING CRANBERRY JUICE EXTRACT 1000 MG CAPSULE DIRECTED ORALLY TAKING FUROSEMIDE 20 MG TABLET 1 TABLET ORALLY ONCE A DAY TAKING ZOLPIDEM TARTRATE 5 MG TABLET 1 TABLET AT BEDTIME ORALLY ONCE A DAY TAKING VITAMIN C PLUS 1000 MG TABLET DIRECTED ORALLY TAKING PROBIOTIC - CAPSULE DIRECTED ORALLY TAKING ENALAPRIL MALEATE 5 MG TABLET 1 TABLET ORALLY ONCE A DAY TAKING HYDROCODONE-ACETAMINOPHEN 5-325 MG TABLET 1 TABLET NEEDED ORALLY EVERY 6 HRS TAKING COLLAGEN 500 MG CAPSULE DIRECTED ORALLY 2,500MG TAKING TURMERIC 500 MG CAPSULE DIRECTED ORALLY 3 TAB AT A TIME NOT-TAKING CLOBETASOL 17 PROPIONATE NOT-TAKING FLUOCINONIDE 0.05 % SOLUTION 1 APPLICATION EXTERNALLY TWICE A DAY TO SCALP FOR TWO WEEKS NOT-TAKING ZOLPIDEM TARTRATE 5 MG TABLET (SCHEDULE IV DRUG) TAKE ONE TABLET BY MOUTH AT BEDTIME NEEDED FOR SLEEP MAXIMUM DAILY DOSE 1 TABLET ORAL NOT-TAKING CLINDAMYCIN PHOSPHATE 1 % SWAB 1 SWAB EXTERNALLY TWICE A DAY TO BILATERAL UNDERARMS NOT-TAKING HYDROXYZINE HCL 25 MG TABLET 1 TABLET NEEDED ORALLY AT BEDTIME NEEDED FOR ITCHING NOT-TAKING BETAMETHASONE VALERATE 0.12 % FOAM 1 APPLICATION EXTERNALLY TWICE A TO SCALP MEDICATION LIST REVIEWED AND RECONCILED WITH THE PATIENT PAST MEDICAL HISTORY DEPRESSIVE DISORDER JOINT PAIN MYALGIA AND MYOSITITIS FYBRROMYALGIA GASTROESOPHAGEAL REFLUX DISEASE COLONOSCOPY TYPE 2 DIABETE HEADACHE WAS LOCK IN THE REFRIGERTOR AT THE AGE OF 42 YEARS OLD ALLERGIES PENICILLIN (FOR ALLERGIES USE ONLY): HIVES LYRICA: SWELLING - SIDE EFFECTS FRAGRANCE: TURN RED ALL OVER FACE SURGICAL HISTORY 1977 BILATERAL BREAST REDUCTION FAMILY HISTORY FATHER: ALIVE MOTHER: , PANCREATIC CANCER DAUGHTER(S): 1 BROTHER(S) , 4 SISTER(S) - HEALTHY. 1DAUGHTER(S) . BOTH SISTER- MELANOMA FATHER- MELANOMA MOTHER HAD PANCREATIC CANCER1 GRANDDAUGHTER. SOCIAL HISTORY GENERAL: TOBACCO USE ARE YOU A:FORMER SMOKER IN HIGH SCHOOL LATEX QUESTIONNAIRE LATEX ALLERGY : HAVE YOU EVER DEVELOPED ANY TYPE OF REACTION AFTER HANDLING LATEX PRODUCTS SUCH RUBBER GLOVES, CONDOMS, DIAPHRAGMS, BALLOONS, SOCKS, OR UNDERWEAR?NO LATEX ALLERGY : HAVE YOU EVER DEVELOPED ANY TYPE OF REACTION DURING OR AFTER DENTAL APPOINTMENT, VAGINAL/RECTAL EXAMINATION, SURGICAL PROCEDURE, OR ANY OTHER EXPOSURE?NO LATEX RISK : HAVE YOU EVER HAD ANY DIFFICULTY BREATHING OR HIVES AFTER EATING OR HANDLING ANY FRUITS, OR VEGETABLES; SUCH KIWI, BANANAS, STONE FRUITS, OR CHESTNUTSNO LATEX RISK : DO YOU HAVE A PREVIOUS PERSONAL HISTORY OF MORE THAN NINE SURGERIES, SPINA BIFIDA, OR REPEATED CATHERIZATIONS? NO LATEX RISK : ARE YOU FREQUENTLY EXPOSED TO LATEX PRODUCTS IN YOUR OCCUPATION?NO DATE ASKED : 12/23/2020 ALCOHOL USE: YES, OCCASIONALLY. RECREATIONAL DRUG USE DRUG USE?NO LEARNING BARRIERS / SPECIAL NEEDS CHANGE FROM LAST VISIT?NO BARRIERS TO LEARNING?NO HEARING IMPAIRED?NO VISION IMPAIRED?YES :CORRECTIVE LENSES READING COGNITIVELY IMPAIRED?NO READINESS TO LEARN?YES LEARNING PREFERENCES?NO LEARNING CAPABILITIES PRESENT?YES EMOTIONAL BARRIERS?NO SPECIAL DEVICES?NO MANAGED CARE NURSE NEEDED?NO OCCUPATION: [employer]. MARITAL STATUS: .. HOSPITALIZATION/MAJOR DIAGNOSTIC PROCEDURE BREAST REDUCTION 2019 REVIEW OF SYSTEMS CONSTITUTIONAL: ANY RECENT FEVER NO . CHILLS NO . WEIGHT CHANGE OF UNKNOWN REASONS NO . GASTROENTEROLOGY: NEW UNEXPLAINABLE CHANGES IN BOWEL CONTROL NO . CONSTIPATION NO . GENITOURINARY: ANY NEW CHANGE IN BLADDER CONTROL? NO . NEUROLOGY: NEW ONSET DIZZINESS OR NEUROLOGICAL CHANGES NOT MENTIONED NO . NEW NUMBNESS OR PAIN PATTERNS NOT MENTIONED AND PERTINENT TO TODAY'S VISIT NO . CARDIOLOGY: NEW CHEST PRESSURE NO . PATIENT DENIES NO . RESPIRATORY: UNEXPLAINABLE COUGH NO . NEW SHORTNESS OF BREATH NO . VITAL SIGNS WT 140.6 LBS, HT 5'3, BMI 27.46 INDEX, BP 107/66 MM HG, HR 103 /MIN, RR 18 /MIN, TEMP 98.6 F, OXYGEN SAT % 100%, SAFE IN ENV? (Y/N) YES, NA INITIALS AW 1356T.JEANETTE KUMARI. EXAMINATION GENERAL EXAMINATION: GENERALNO ACUTE DISTRESS, WELL NOURISHED AND HYDRATED. PSYCH ANXIOUS AT TIMES. FACE:MILD TENDERNESS WITH PALPATION OVER LEFT CHEEK AND NOSE. NO REDNESS OR SWELLING NOTED . NECK:NO LYMPHADENOPATHY, SUPPLE. LUNGS:CLEAR TO AUSCULTATION BILATERALLY, NO WHEEZES, RHONCHI, RALES. HEART:NO MURMURS, REGULAR RATE AND RHYTHM. NEUROLOGIC EXAM: CN'S II-XII GROSSLY INTACT. ASSESSMENTS FACIAL PAIN - 784.0 (PRIMARY) TREATMENT FACIAL PAIN NOTES: INFORMED PATIENT THAT I DID NOT KNOW WHAT WAS CAUSING THIS INTERMITTENT SEVERE FACIAL PAIN. SCHEDULED TO SEE DR. MARTINS FOR FOLLOW-UP TO EVALUATE TO SEE IF HE FEELS THAT THIS IS TRIGEMINAL NEURALGIA OR ANYTHING THAT INJECTIONS WOULD BE HELPFUL FOR. PROCEDURE CODES FA211 ESTABILISHED PATIENT [facility] CHARGE DISPOSITION & COMMUNICATION FOLLOW UP 6 WEEKS (REASON: FOLLOW-UP DR. MARTINS LEFT FACIAL PAIN) ELECTRONICALLY SIGNED BY ALLY ANN ON 12/25/2020 AT 02:10 PM EDT DISCLAIMER : THIS IS A VISIT SUMMARY EXTRACTED FROM THE [employer] CHART. IT IS NOT A COPY OF THE [employer] PROGRESS NOTE. RENETTA
== END ==
LOC: M PAIN 13:45
PROVIDERS: ATTEND Nurse Practitioner Family
DX: R51.9 Headache, unspecified (principal); F32.9 Major depressive disorder, single episode, unspecified; M79.18 Myalgia, other site; M60.9 Myositis, unspecified; M79.7 Fibromyalgia; K21.9 Gastro-esophageal reflux disease without esophagitis; E11.9 Type 2 diabetes mellitus without complications; Z87.891 Personal history of nicotine dependence; Z79.891 Long term (current) use of opiate analgesic; Z79.899 Other long term (current) drug therapy; Z88.0 Allergy status to penicillin; Z88.8 Allergy status to other drugs, medicaments and biological substances; Z91.048 Other nonmedicinal substance allergy status

== ENCOUNTER → 2021-02-07 | Outpatient (CLI) | payer MEDICARE, MEDICAID ==
[2021-02-07 15:56] LABS: BILIRUBIN,TOTAL 0.2 MG/DL (0.2-1.0); CALCIUM LEVEL 9.3 MG/DL (8.8-10.2); CREATININE FOR GFR 1.06 MG/DL (0.55-1.30); POTASSIUM SERUM 4.1 MEQ/L (3.5-5.1); TOTAL PROTEIN 7.9 GM/DL (6.4-8.2)
== END ==
LOC: M LAB 14:10
PROVIDERS: ATTEND Anesthesiology
DX: R51.9 Headache, unspecified (principal)

== ENCOUNTER → 2021-02-07 | Outpatient (CLI) | payer MEDICARE, MEDICAID ==
--- NOTE | 2021-02-11 03:01 | ECWPNPC ---
PATIENT NAME: ELISE GOODWIN : 1955 GENDER: FEMALE VISIT DATE: 02/07/2021 DISCHARGE DATE: 02/07/21 1334 VISIT LOCKED DATE TIME: PHYSICIAN: ADIEL MARTINS MD RESOURCE: ADIEL MARTINS MD REASON FOR APPOINTMENT 1. FACIAL PAIN HISTORY OF PRESENT ILLNESS GENERAL: 65-YEAR-OLD FEMALE PATIENT WITH A HISTORY OF LEG FACIAL PAIN. THE PATIENT DESCRIBES THE PAIN BURNING, THROBBING AND SHOOTING WITH A PAIN SCORE RANGING FROM 8-10/10. THIS STARTED 6 MONTHS AGO WHEN SHE HAD PAIN OVER THE AREA, BUT OVER THE LAST MONTH, IT HAS BEEN WORSE AND DIFFICULT FOR HER TO DO BASIC ACTIVITIES. THE PATIENT DENIES ANY TRAUMA OVER THE AREA. FALL RISK SCREENING: SCREENING : NO FALLS REPORTED IN THE LAST YEAR. PAIN SCREENING: PATIENT HAS A COMPLAINT OF ACUTE OR CHRONIC PAIN :YES LOCATION OF PAIN:FACE, HEAD, NECK LEFT SIDE INTENSITY OF PAIN (SCALE OF 1 TO 10):10 WHAT DOES YOUR PAIN FEEL LIKE:BURNING, THROBBING, SHOOTING, OTHER PARALYZING DURATION:INTERMITTENT, AWAKENS FROM SLEEP PAIN DOES GO AWAY AT TIMES BUT CAN LAST FOR LONG LENGTHS OF TIME PAIN IS INCREASED BY:OTHERS STRESS, SUGAR PAIN IS DECREASED BY:OTHERS HOT COMPRESS NURSING NOTE: -. PAIN CENTER INTAKE QUESTIONS: DO YOU HAVE A HISTORY OF MRSA? :NO DO YOU TAKE A BLOOD THINNERS? :NO DO YOU HAVE ANY BLEEDING DISORDERS? :NO ANY NEW NUMBNESS OR WEAKNESS IN YOUR LEGS OR ARMS? :NO ANY PACEMAKER,DEFIBRILLATOR, OR DORSAL COLUMN STIMULATOR? :NO DO YOU HAVE ANY RASHES OR OPEN SORES? :NO ARE YOU ALLERGIC TO IV DYE? :NO ARE YOU DIABETIC? :YES ANY NEW PROBLEMS WITH YOUR MEDICATIONS? :NO HAVE YOU RECEIVED A VACCINE IN THE PAST 30 DAYS? :NO DO YOU PLAN TO RECEIVE A VACCINE IN THE NEXT 21 DAYS? :NO DO YOU NEED ANY PRESCRIPTION? :NO DO YOU TAKE ANY IMMUNOSUPPRESSIVE MEDICATIONS? :NO DO YOU HAVE ANY KIDNEY OR LIVER DISEASE? :NO IS THERE A CHANCE YOU COULD BE ? :NO ARE YOU BREAST FEEDING? :NO CURRENT MEDICATIONS TAKING GABAPENTIN 100 MG CAPSULE 1 CAPSULE ORALLY TWICE A DAY TAKING PHENTERMINE HCL 30 MG TABLET DISINTEGRATING DIRECTED ORALLY EVERY DAY TAKING SHINGRIX 50 MCG/0.5ML SUSPENSION RECONSTITUTED INJECT DIRECTED 2ND DOSE INTRAMUSCULAR , NOTES: LAST YEAR SHE GOT IT TAKING VIBERZI 100 MG TABLET (SCHEDULE IV DRUG) TAKE ONE TABLET BY MOUTH TWICE A DAY MAXIMUM DAILY DOSE TWO TABLETS ORAL TAKING ALPRAZOLAM 0.25 MG TABLET (SCHEDULE IV DRUG) TAKE ONE TABLET BY MOUTH THREE TIMES A DAY NEEDED MAXIMUM DAILY DOSE 3 TABLETS ORAL TAKING OZEMPIC (0.25 OR 0.5 MG/DOSE) 2 MG/1.5ML SOLUTION PEN-INJECTOR INJECT 0.5MG SUBCUTANEOUSLY WEEKLY SUBCUTANEOUS TAKING CLOBETASOL PROPIONATE 0.05 % SHAMPOO 1 APPLICATION EXTERNALLY THREE TIMES WEEKLY TAKING ATORVASTATIN CALCIUM 20 MG TABLET 1 TABLET ORALLY ONCE A DAY TAKING TOPIRAMATE 100 MG TABLET 1 TABLET ORALLY BID TAKING LEVOTHYROXINE SODIUM 50 MCG TABLET 1 TABLET IN THE MORNING ON AN EMPTY STOMACH ORALLY ONCE A DAY TAKING DULOXETINE HCL 60 MG CAPSULE DELAYED RELEASE PARTICLES 2 CAPSULES ORALLY ONCE A DAY TAKING ESOMEPRAZOLE MAGNESIUM 20 MG CAPSULE DELAYED RELEASE 1 CAPSULE ORALLY ONCE A DAY TAKING VITAMIN D3 50 MCG (2000 UT) CAPSULE 1 CAPSULE ORALLY ONCE A DAY TAKING MAGNESIUM 200 MG TABLET 2 TABLETS WITH A MEAL ORALLY ONCE A DAY TAKING CRANBERRY JUICE EXTRACT 1000 MG CAPSULE DIRECTED ORALLY TAKING FUROSEMIDE 20 MG TABLET 1 TABLET ORALLY ONCE A DAY TAKING ZOLPIDEM TARTRATE 5 MG TABLET 1 TABLET AT BEDTIME ORALLY ONCE A DAY TAKING VITAMIN C PLUS 1000 MG TABLET DIRECTED ORALLY DAILY TAKING PROBIOTIC - CAPSULE DIRECTED ORALLY DAILY TAKING ENALAPRIL MALEATE 5 MG TABLET 1 TABLET ORALLY ONCE A DAY TAKING HYDROCODONE-ACETAMINOPHEN 5-325 MG TABLET 1 TABLET NEEDED ORALLY EVERY 6 HRS TAKING COLLAGEN 500 MG CAPSULE DIRECTED ORALLY 2,500MG TAKING TURMERIC 500 MG CAPSULE DIRECTED ORALLY 3 TAB AT A TIME TAKING HYDROQUINONE 4 % CREAM 1 APPLICATION EXTERNALLY TWICE A DAY TAKING TIZANIDINE HCL 4 MG TABLET 1 TABLET NEEDED ORALLY BID NOT-TAKING PHENTERMINE HCL 30 MG CAPSULE 1 CAPSULE ORALLY ONCE A DAY, NOTES: DUPLICATE NOT-TAKING VALTREX 1 GM TABLET 1 TABLET ORALLY ONCE A DAY NOT-TAKING CLOBETASOL 17 PROPIONATE NOT-TAKING FLUOCINONIDE 0.05 % SOLUTION 1 APPLICATION EXTERNALLY TWICE A DAY TO SCALP FOR TWO WEEKS NOT-TAKING ZOLPIDEM TARTRATE 5 MG TABLET (SCHEDULE IV DRUG) TAKE ONE TABLET BY MOUTH AT BEDTIME NEEDED FOR SLEEP MAXIMUM DAILY DOSE 1 TABLET ORAL NOT-TAKING CLINDAMYCIN PHOSPHATE 1 % SWAB 1 SWAB EXTERNALLY TWICE A DAY TO BILATERAL UNDERARMS NOT-TAKING HYDROXYZINE HCL 25 MG TABLET 1 TABLET NEEDED ORALLY AT BEDTIME NEEDED FOR ITCHING NOT-TAKING BETAMETHASONE VALERATE 0.12 % FOAM 1 APPLICATION EXTERNALLY TWICE A TO SCALP MEDICATION LIST REVIEWED AND RECONCILED WITH THE PATIENT PAST MEDICAL HISTORY DEPRESSIVE DISORDER JOINT PAIN MYALGIA AND MYOSITITIS FYBRROMYALGIA GASTROESOPHAGEAL REFLUX DISEASE COLONOSCOPY TYPE 2 DIABETE HEADACHE WAS LOCK IN THE REFRIGERTOR AT THE AGE OF 42 YEARS OLD ALLERGIES PENICILLIN (FOR ALLERGIES USE ONLY): HIVES LYRICA: SWELLING - SIDE EFFECTS FRAGRANCE: TURN RED ALL OVER FACE SOCIAL HISTORY GENERAL: TOBACCO USE ARE YOU A:FORMER SMOKER IN HIGH SCHOOL LATEX QUESTIONNAIRE LATEX ALLERGY : HAVE YOU EVER DEVELOPED ANY TYPE OF REACTION AFTER HANDLING LATEX PRODUCTS SUCH RUBBER GLOVES, CONDOMS, DIAPHRAGMS, BALLOONS, SOCKS, OR UNDERWEAR?NO LATEX ALLERGY : HAVE YOU EVER DEVELOPED ANY TYPE OF REACTION DURING OR AFTER DENTAL APPOINTMENT, VAGINAL/RECTAL EXAMINATION, SURGICAL PROCEDURE, OR ANY OTHER EXPOSURE?NO LATEX RISK : HAVE YOU EVER HAD ANY DIFFICULTY BREATHING OR HIVES AFTER EATING OR HANDLING ANY FRUITS, OR VEGETABLES; SUCH KIWI, BANANAS, STONE FRUITS, OR CHESTNUTSNO LATEX RISK : DO YOU HAVE A PREVIOUS PERSONAL HISTORY OF MORE THAN NINE SURGERIES, SPINA BIFIDA, OR REPEATED CATHERIZATIONS? NO LATEX RISK : ARE YOU FREQUENTLY EXPOSED TO LATEX PRODUCTS IN YOUR OCCUPATION?NO DATE ASKED : 01/15/2021 ALCOHOL USE: YES, OCCASIONALLY. RECREATIONAL DRUG USE DRUG USE?NO LEARNING BARRIERS / SPECIAL NEEDS CHANGE FROM LAST VISIT?NO BARRIERS TO LEARNING?NO HEARING IMPAIRED?NO VISION IMPAIRED?YES :CORRECTIVE LENSES READING COGNITIVELY IMPAIRED?NO READINESS TO LEARN?YES LEARNING PREFERENCES?NO LEARNING CAPABILITIES PRESENT?YES EMOTIONAL BARRIERS?NO SPECIAL DEVICES?NO CASTING CHIPPER NEEDED?NO OCCUPATION: [employer]. MARITAL STATUS: .. REVIEW OF SYSTEMS CONSTITUTIONAL: ANY RECENT FEVER NO . CHILLS NO . WEIGHT CHANGE OF UNKNOWN REASONS NO . GASTROENTEROLOGY: NEW UNEXPLAINABLE CHANGES IN BOWEL CONTROL NO . CONSTIPATION NO . GENITOURINARY: ANY NEW CHANGE IN BLADDER CONTROL? NO . NEUROLOGY: NEW ONSET DIZZINESS OR NEUROLOGICAL CHANGES NOT MENTIONED NO . NEW NUMBNESS OR PAIN PATTERNS NOT MENTIONED AND PERTINENT TO TODAY'S VISIT NO . CARDIOLOGY: NEW CHEST PRESSURE NO . PATIENT DENIES NO . RESPIRATORY: UNEXPLAINABLE COUGH NO . NEW SHORTNESS OF BREATH NO . VITAL SIGNS WT 139.2 LBS, HT 5'3, BMI 27.18 INDEX, BP 124/84 MM HG, HR 101 /MIN, RR 18 /MIN, TEMP 98.0 F, OXYGEN SAT % 94%, SAFE IN ENV? (Y/N) YES, NA INITIALS AW 1111, REVIEWED BY: Darlene ALLISON RN. EXAMINATION GENERAL EXAMINATION: THE PATIENT IS ALERT, ORIENTED TIMES THREE AND COOPERATIVE. LUNGS ARE CLEAR TO AUSCULTATION. HEART SHOWS REGULAR RHYTHM, NO MURMURS AND NO GALLOPS. THERE IS NO PAIN COMING FROM THE GUMS, TEETH AREA OR INSIDE THE MOUTH. THERE IS HYPERPATHIA OVER THE MAXILLARY NERVE OVER THE LEFT SIDE OF HER FACE. ASSESSMENTS LT FACIAL PAIN - R51.9 (PRIMARY), RULE OUT MAXILLARY NERVE NEURALGIA, RULE OUT TRIGEMINAL NERVE NEURALGIA. TREATMENT LT FACIAL PAIN START OXCARBAZEPINE TABLET, 150 MG, 1 TABLET, ORALLY FOR FACIAL PAIN, TWICE A DAY, 30 DAY(S), 60, REFILLS 1 LAB: COMPREHENSIVE METABOLIC PROFILE (CMP) (ORDERED FOR 02/07/2021) GLUCOSE 67 (70-100 - MG/DL) BUN 20 (7-18 - MG/DL) CREATININE 1.06 (0.55-1.30 - MG/DL) GLOMERULAR FILTRATION RATE 55.0 (>45 - ) SODIUM 142 (136-145 - MEQ/L) POTASSIUM 4.1 (3.5-5.1 - MEQ/L) CHLORIDE 110 (98-107 - MEQ/L) CARBON DIOXIDE 29 (21-32 - MEQ/L) CALCIUM 9.3 (8.8-10.2 - MG/DL) AST/SGOT 16 (7-37 - U/L) ALT/SGPT 20 (12-78 - U/L) ALK PHOS 100 (45-117 - U/L) BILIRUBIN,TOTAL 0.2 (0.2-1.0 - MG/DL) TOTAL PROTEIN 7.9 (6.4-8.2 - GM/DL) ALBUMIN 4.0 (3.2-5.2 - GM/DL) ALB/GLOB RATIO 1.0 (1.2-2.2 - ) [facility] MRI ORBITS, FACE AND NECK [id number],KRISTAL 02/10/2021 9:50:48 AM > MR MAXILLOMANDIBULAR WITH MARKERS NOTES: 02/07/21 1330 PATIENT GIVEN A COPY OF LAB ORDERS TO HAND CARRY TO REGISTRATION FOR COMPLETION, PATIENT VERBALIZED UNDERSTANDING. Sriram ELIZALDE BRANCH OPERATIONS COORDINATOR. CLINICAL NOTES: I DISCUSSED ALTERNATIVES WITH MS. GOODWIN. I THINK THAT THIS SEEMS TO BE SOME SORT OF NEURALGIA OVER THE MAXILLARY NERVE. SO WE HAVE THE OPTION OF INJECTING AT THAT AREA WITH SOME STEROIDS BUT MY CONCERN WOULD BE ATROPHY OF THE MUSCLE. I HAVE NOT SEEN A LOT OF THAT BUT I WANT THE PATIENT TO UNDERSTAND THAT THIS IS A POSSIBILITY AND CAN CAUSE COSMETIC CONCERNS. THE PATIENT HAS ASKED ABOUT GAMMA KNIFE. THIS WILL HAVE TO BE CONSIDERED BY A NEUROSURGEON. I WILL REFER HER TO [facility] TO CONSIDER THIS PROCEDURE. THE PATIENT HAS RESEARCHED THAT DR. LUZ DOES THIS SO I WILL REACH OUT TO HIM TO SEE IF HER DOES. I ENCOURAGED HER TO REACH OUT TO NEUROLOGY ABOUT THIS TO SEE IF THEY CAN HELP US WITH THIS. I WOULD LIKE TO ORDER SOME STUDIES. I AM THINKING AN MRI WITH MARKERS BUT I AM CALLING THE RADIOLOGY DEPARTMENT TO SEE IF THIS IS THE CORRECT STUDY. WE TALKED ABOUT MEDICATIONS. I WILL ORDER BASIC CHEMISTRY LABS TO CHECK HER BASELINE SODIUM LEVELS BEFORE I START HER ON OXCARBAZEPINE. THE PATIENT REPORTS UNDERSTANDING AND AGREES WITH THE PLAN. I, STEFANIA ESTRELLA, DOCUMENTED THE ABOVE INFORMATION ACTING A SCRIBE FOR DR. MARTINS. I HAVE REVIEWED THE ABOVE DOCUMENT, WRITTEN BY STEFANIA ESTRELLA, MARKETING INFORMATION ANALYST, AND I VERIFY THAT IT IS ACCURATE. OTHERS REFERRAL TO:[facility] REASON:LEFT FACIAL PAIN PROCEDURE CODES FA211 ESTABILISHED PATIENT [facility] CHARGE [id number] OFFICE/OUTPATIENT VISIT EST DISPOSITION & COMMUNICATION FOLLOW UP REQUEST AUTH FOR LEFT MAXILLARY NERVE BLOCK, DO NOT BOOK UNTIL DR. Killian APPROVES (REASON: REQUEST AUTH FOR LEFT MAXILLARY NERVE BLOCK, DO NOT BOOK UNTIL DR. Killian APPROVES) ELECTRONICALLY SIGNED BY ADIEL MARTINS MD, MD ON 02/10/2021 AT 05:52 PM EDT DISCLAIMER : THIS IS A VISIT SUMMARY EXTRACTED FROM THE [employer] CHART. IT IS NOT A COPY OF THE [employer] PROGRESS NOTE. RENETTA
== END ==
LOC: M PAIN 11:00
PROVIDERS: ATTEND Anesthesiology
DX: R51.9 Headache, unspecified (principal); F32.9 Major depressive disorder, single episode, unspecified; M79.18 Myalgia, other site; M79.7 Fibromyalgia; K21.9 Gastro-esophageal reflux disease without esophagitis; E11.9 Type 2 diabetes mellitus without complications; Z87.891 Personal history of nicotine dependence; Z79.891 Long term (current) use of opiate analgesic; Z79.899 Other long term (current) drug therapy; Z88.0 Allergy status to penicillin; Z88.8 Allergy status to other drugs, medicaments and biological substances; Z91.048 Other nonmedicinal substance allergy status

== ENCOUNTER → 2021-02-19 | Outpatient (CLI) | payer MEDICARE | LOC: M PAIN 12:30 | PROVIDERS: ATTEND Anesthesiology | DX: R51.9 Headache, unspecified (principal); G89.29 Other chronic pain; E11.9 Type 2 diabetes mellitus without complications; M79.7 Fibromyalgia; K21.9 Gastro-esophageal reflux disease without esophagitis; Z86.59 Personal history of other mental and behavioral disorders; Z87.891 Personal history of nicotine dependence; Z88.0 Allergy status to penicillin; Z88.8 Allergy status to other drugs, medicaments and biological substances; Z91.09 Other allergy status, other than to drugs and biological substances; Z79.899 Other long term (current) drug therapy ==

== ENCOUNTER → 2021-03-05 | Outpatient (REF) | payer MEDICARE, MEDICAID ==
[2021-03-05 17:33] LABS: RHEUMATOID FACTOR QUANT < 10.0 IU/ML (<15.0); TOTAL PROTEIN 8.1 GM/DL (6.4-8.2)
[2021-03-05 17:38] LABS: VITAMIN B12 LEVEL 1664 PG/ML
[2021-03-05 17:39] LABS: FOLATE > 24.0 NG/ML
[2021-03-06 10:27] LABS: ALBUMIN % 56.8 % (55.8-66.1); ALPHA-1-GLOBULIN % 2.8 % (2.9-4.9); ALPHA-1-GLOBULINS 0.23 GM/DL (0.17-0.41); ALPHA-2-GLOBULINS 0.87 GM/DL (0.42-0.99); ALPHA-2-GLOBULINS % 10.7 % (7.1-11.8); BETA-1-GLOBULINS 0.52 GM/DL (0.28-0.60); BETA-1-GLOBULINS % 6.4 % (4.7-7.2); BETA-2-GLOBULINS % 6.2 % (3.2-6.5); GAMMA GLOBULIN % 17.1 % (11.1-18.8); GAMMA GLOBULINS 1.39 GM/DL (0.65-1.58)
== END ==
LOC: M LAB REF 16:28
PROVIDERS: ATTEND Nurse Practitioner Adult Health
DX: G60.9 Hereditary and idiopathic neuropathy, unspecified (principal)

== ENCOUNTER → 2021-03-19 | Outpatient (REF) | payer MEDICARE, MEDICAID | LOC: M LAB REF 13:59 | PROVIDERS: ATTEND Physician Assistant | DX: L60.1 Onycholysis (principal) | CPT/HCPCS: 17110; 87101; G0463 ==

== ENCOUNTER → 2021-06-03 | Outpatient (CLI) | payer MEDICARE, MEDICAID ==
[2021-06-03 16:55] LABS: CALCIUM LEVEL 9.3 MG/DL (8.8-10.2); CREATININE FOR GFR 1.07 MG/DL (0.55-1.30); GLOMERULAR FILTRATION RATE 54.5 (>45); POTASSIUM SERUM 4.5 MEQ/L (3.5-5.1)
== END ==
LOC: M WUC 14:26
PROVIDERS: ATTEND Anesthesiology
DX: R51.9 Headache, unspecified (principal)

== ENCOUNTER → 2021-08-28 | Outpatient (REF) | payer MEDICARE | LOC: M SFHCPLAZ 10:23 | PROVIDERS: ATTEND Physician Assistant | DX: Z53.9 Procedure and treatment not carried out, unspecified reason (principal) ==

== ENCOUNTER → 2021-10-09 | Outpatient (CLI) | payer MEDICARE | LOC: M PAIN 13:45 | PROVIDERS: ATTEND Nurse Practitioner Family | DX: Z79.891 Long term (current) use of opiate analgesic (principal) ==

== ENCOUNTER → 2021-10-13 | Outpatient (CLI) | payer MEDICARE ==
[2021-10-13 16:24] LABS: HEMATOCRIT 42.1 % (36.0-47.0); HEMOGLOBIN 13.6 g/dl (12.0-15.5); MEAN CORPUSCULAR HEMOGLOBIN 31.6 pg (27.0-33.0); MEAN CORPUSCULAR HGB CONC 32.3 g/dl (32.0-36.5); MEAN CORPUSCULAR VOLUME 97.7 fl (80.0-96.0); PLATELET COUNT, AUTOMATED 324 10^3/uL (150-450); RED BLOOD COUNT 4.31 10^6/uL (4.00-5.40); WHITE BLOOD COUNT 9.6 10^3/uL (4.0-10.0)
[2021-10-13 16:36] LABS: ALT/SGPT 25 U/L (12-78); BILIRUBIN,TOTAL 0.4 MG/DL (0.2-1.0); BLOOD UREA NITROGEN 20 MG/DL (7-18); CALCIUM LEVEL 9.2 MG/DL (8.8-10.2); CARBON DIOXIDE LEVEL 29 MEQ/L (21-32); CHLORIDE LEVEL 107 MEQ/L (98-107); CREATININE FOR GFR 1.21 MG/DL (0.55-1.30); GLOMERULAR FILTRATION RATE 47.1 (>45); GLUCOSE, FASTING 93 MG/DL (70-100); SODIUM LEVEL 141 MEQ/L (136-145); TOTAL PROTEIN 7.5 GM/DL (6.4-8.2)
[2021-10-13 16:54] LABS: HEPATITIS B SURFACE ANTIGEN NEGATIVE (NEGATIVE)
[2021-10-13 17:22] LABS: HEPATITIS B CORE ANTIBODY IGM NEGATIVE (NEGATIVE); HEPATITIS C VIRUS ABY INDEX 0.2 INDEX (<0.8)
[2021-10-13 17:23] LABS: HIV 1&2 SCREEN CENTAUR NEGATIVE (NEGATIVE)
== END ==
LOC: M WUC 12:00
PROVIDERS: ATTEND Physician Assistant
DX: L40.9 Psoriasis, unspecified (principal)

== ENCOUNTER → 2021-12-18 | Outpatient (CLI) | payer MEDICARE, MEDICAID | LOC: M WUC 13:05 | PROVIDERS: ATTEND Anesthesiology | DX: R51.9 Headache, unspecified (principal) ==

== ENCOUNTER → 2021-12-18 | Outpatient (CLI) | payer MEDICARE, MEDICAID | LOC: M PAIN 10:30 | PROVIDERS: ATTEND Anesthesiology | DX: G43.909 Migraine, unspecified, not intractable, without status migrainosus (principal); F32.9 Major depressive disorder, single episode, unspecified; M79.10 Myalgia, unspecified site; M79.7 Fibromyalgia; K21.9 Gastro-esophageal reflux disease without esophagitis; E11.42 Type 2 diabetes mellitus with diabetic polyneuropathy; L40.9 Psoriasis, unspecified; F41.9 Anxiety disorder, unspecified; F40.240 Claustrophobia; Z79.891 Long term (current) use of opiate analgesic; Z79.899 Other long term (current) drug therapy; Z88.0 Allergy status to penicillin; Z88.8 Allergy status to other drugs, medicaments and biological substances; Z91.048 Other nonmedicinal substance allergy status | CPT/HCPCS: 36415; 84295; G0463 ==

== ENCOUNTER → 2022-03-11 | Outpatient (REF) | payer MEDICARE, MEDICAID | LOC: M SFHCDERM 16:18 | PROVIDERS: ATTEND Physician Assistant | DX: R21 Rash and other nonspecific skin eruption (principal) ==

== ENCOUNTER → 2022-05-15 | Outpatient (CLI) | payer MEDICARE, MEDICAID | LOC: M PAIN 13:30 | PROVIDERS: ATTEND Nurse Practitioner Family | DX: R51.9 Headache, unspecified (principal); G89.29 Other chronic pain; E11.40 Type 2 diabetes mellitus with diabetic neuropathy, unspecified; M79.7 Fibromyalgia; M79.18 Myalgia, other site; K21.9 Gastro-esophageal reflux disease without esophagitis; Z86.59 Personal history of other mental and behavioral disorders; Z88.0 Allergy status to penicillin; Z88.8 Allergy status to other drugs, medicaments and biological substances; Z79.899 Other long term (current) drug therapy ==

== ENCOUNTER → 2022-05-21 | Outpatient (CLI) | payer MEDICARE, MEDICAID | LOC: M WUC 10:49 | PROVIDERS: ATTEND Nurse Practitioner Family | DX: R51.9 Headache, unspecified (principal) ==

== ENCOUNTER → 2022-07-20 | Outpatient (REF) | payer MEDICARE, MEDICAID ==
[~2022-07-20] MED LIST changes: +ENAL1TAB48 PO; -ENAL5TA PO
== END ==
LOC: M SFHCDERM 17:20
PROVIDERS: ATTEND Physician Assistant
DX: L28.1 Prurigo nodularis (principal)

== ENCOUNTER → 2022-08-25 | Outpatient (CLI) | payer MEDICARE, MEDICAID | LOC: M RAD 13:56 | PROVIDERS: ATTEND Physician Assistant Medical | DX: M79.602 Pain in left arm (principal) ==

== ENCOUNTER → 2022-09-08 | Outpatient (CLI) | payer MEDICARE, MEDICAID | LOC: M PAIN 13:45 | PROVIDERS: ATTEND Nurse Practitioner Family | DX: R51.9 Headache, unspecified (principal); G89.29 Other chronic pain; E11.40 Type 2 diabetes mellitus with diabetic neuropathy, unspecified; M79.7 Fibromyalgia; K21.9 Gastro-esophageal reflux disease without esophagitis; Z86.59 Personal history of other mental and behavioral disorders; Z88.0 Allergy status to penicillin; Z88.8 Allergy status to other drugs, medicaments and biological substances; Z91.09 Other allergy status, other than to drugs and biological substances; Z79.85 Long-term (current) use of injectable non-insulin antidiabetic drugs; Z79.899 Other long term (current) drug therapy ==

== ENCOUNTER → 2022-10-01 | Outpatient (CLI) | payer MEDICARE, MEDICAID ==
[2022-10-01 17:21] LABS: GLOMERULAR FILTRATION RATE 58.5 (>45)
== END ==
LOC: M WUC 11:34
PROVIDERS: ATTEND Psychiatry & Neurology Neurology
DX: I10 Essential (primary) hypertension (principal)

== ENCOUNTER → 2022-11-19 | Outpatient (CLI) | payer MEDICARE, MEDICAID | LOC: M WHC 14:55 | PROVIDERS: ATTEND Nurse Practitioner Adult Health | DX: Z12.31 Encounter for screening mammogram for malignant neoplasm of breast (principal); Z98.890 Other specified postprocedural states ==

== ENCOUNTER → 2023-02-01 | Outpatient (CLI) | payer MEDICARE, MEDICAID | LOC: M PAIN 09:45 | PROVIDERS: ATTEND Nurse Practitioner Family | DX: R51.9 Headache, unspecified (principal); Z79.891 Long term (current) use of opiate analgesic; G89.29 Other chronic pain; F32.9 Major depressive disorder, single episode, unspecified; M79.18 Myalgia, other site; M79.7 Fibromyalgia; K21.9 Gastro-esophageal reflux disease without esophagitis; E11.9 Type 2 diabetes mellitus without complications; L40.9 Psoriasis, unspecified; F41.9 Anxiety disorder, unspecified; Z79.82 Long term (current) use of aspirin; Z79.890 Hormone replacement therapy; Z79.899 Other long term (current) drug therapy; Z88.0 Allergy status to penicillin; Z88.8 Allergy status to other drugs, medicaments and biological substances; Z91.048 Other nonmedicinal substance allergy status ==

== ENCOUNTER → 2023-03-02 | Outpatient (CLI) | payer MEDICARE, MEDICAID | LOC: M WHC 12:47 | PROVIDERS: ATTEND Nurse Practitioner Adult Health | DX: M81.0 Age-related osteoporosis without current pathological fracture (principal) ==

== ENCOUNTER → 2023-08-13 | Outpatient (CLI) | payer MEDICARE, MEDICAID | LOC: M WUC 10:39 | PROVIDERS: ATTEND Nurse Practitioner Adult Health | DX: M25.552 Pain in left hip (principal) ==

== ENCOUNTER → 2024-01-19 | Outpatient (REF) | payer MEDICARE, MEDICAID ==
[~2024-01-19] MED LIST changes: -ESOM0.1C PO; +ESOM20CA2 PO
[2024-01-19 16:25] LABS: INR 1.02; PARTIAL THROMBOPLASTIN TIME 26.6 SECONDS (24.8-34.2); PROTHROMBIN TIME 13.1 SECONDS (12.5-14.5)
== END ==
LOC: M LAB REF 16:07
PROVIDERS: ATTEND Family Medicine
DX: Z01.818 Encounter for other preprocedural examination (principal); Z79.01 Long term (current) use of anticoagulants

== ENCOUNTER 2024-09-05 10:46 | Day surgery (SDC) | payer MEDICARE, MEDICAID ==
[~2024-09-05] VITALS: Ht 160 cm; Wt 68.2 kg
[~2024-09-05 10:46] MED LIST changes: +ATOR1TAB21 PO; +BUPR150T12 PO; +GABA-1171 PO; +GALZ25CA PO; +GNP250TA9 PO; +HYDR-3363 PO; +LEVO50TA5 PO; +LIDOCAINE 2% 100MG/5ML SDV (FOR ANES.) As Ordered ONE; +SEMA0.257; +TIZA2TA PO; +VITA100093 PO; +propofoL 200 MG/20 ML VIAL As Ordered ONE
[2024-09-05 11:37] VITALS: TEMP 96.8
[2024-09-05 12:58] VITALS: BP 110/69; O2SAT 97
== END 2024-09-05 13:17 | disposition home or self-care (01) ==
LOC: M OPP 10:46
PROVIDERS: ATTEND Surgery
DX: Z12.11 Encounter for screening for malignant neoplasm of colon (principal); R19.5 Other fecal abnormalities; K57.30 Diverticulosis of large intestine without perforation or abscess without bleeding; K64.0 First degree hemorrhoids; K20.90 Esophagitis, unspecified without bleeding; K29.70 Gastritis, unspecified, without bleeding; R10.13 Epigastric pain
CPT/HCPCS: 43239; 88305; G0121

== ENCOUNTER 2025-01-13 13:59 | Emergency (ER) | payer MEDICARE, MEDICAID ==
[~2025-01-13] VITALS: Ht 160 cm; Wt 68.8 kg
[~2025-01-13 13:59] MED LIST changes: -GALZ25CA PO; -LIDOCAINE 2% 100MG/5ML SDV (FOR ANES.) As Ordered ONE; +TOPI-257 PO; -TOPI100T9 PO; +ZINC25CA2 PO; -propofoL 200 MG/20 ML VIAL As Ordered ONE
[2025-01-13 14:04] VITALS: TEMP 98.6
[2025-01-13] MEDS ORDERED: HYDR-3713 (14:10)
[2025-01-13 16:00] VITALS: BP 158/96
[2025-01-13 16:29] VITALS: O2SAT 96
[2025-01-13] MEDS: ACETAMINOPHEN 325 MG TAB PO ONE (16:34)
[2025-01-13] MEDS: KETOROLAC 30 MG/ML 1 ML VIAL IM ONE (16:35)
== END 2025-01-13 16:50 | disposition home or self-care (01) ==
LOC: M ED 13:59
DX: M79.7 Fibromyalgia (principal); K58.9 Irritable bowel syndrome, unspecified; I10 Essential (primary) hypertension; E78.5 Hyperlipidemia, unspecified; Z88.0 Allergy status to penicillin; Z91.09 Other allergy status, other than to drugs and biological substances; Z79.1 Long term (current) use of non-steroidal anti-inflammatories (NSAID); Z79.4 Long term (current) use of insulin; Z79.899 Other long term (current) drug therapy
CPT/HCPCS: 96372; 99284; J1885

== ENCOUNTER → 2025-02-05 | Outpatient (REF) | payer MEDICARE, MEDICAID ==
[~2025-02-05] MED LIST changes: +HYDR-3713
== END ==
LOC: M LAB REF 14:25
PROVIDERS: ATTEND Nurse Practitioner Adult Health
DX: R74.8 Abnormal levels of other serum enzymes (principal)